=== PATIENT | female | born 1955 | race Two or more races ===

== ENCOUNTER 2017-10-19 20:55 | Emergency (ER) | payer MEDICAID ==
[~2017-10-19] VITALS: Ht 165.1 cm; Wt 68.0 kg
[2017-10-19 23:31] LABS: APPEARANCE,URINE CLEAR (CLEAR); BILIRUBIN,URINE NEGATIVE (NEGATIVE); BLOOD, URINE TRACE-INTA Ery/uL (NEGATIVE); COLOR,URINE YELLOW (YELLOW); KETONES,URINE NEGATIVE (NEGATIVE); LEUKOCYTE ESTERASE ,URINE NEGATIVE (NEGATIVE); NITRITE, URINE NEGATIVE (NEGATIVE); PH,URINE 6.5 (5.0-8.0); PROTEIN,URINE NEGATIVE (NEGATIVE); UGLUCOSE NEGATIVE (NEGATIVE); UROBILINOGEN,URINE 0.2 EU/dL (0.2)
[2017-10-19 23:33] LABS: BACTERIA,URINE None seen /HPF (None Seen); WBC,URINE 0-2 /HPF (0-3)
[2017-10-19 23:34] LABS: SQUAMOUS EPITHELIAL CELL,UR Few /HPF (None Seen)
[2017-10-20] MEDS ORDERED: MAG HYDROX/AL HYDROX/SIMETH 30 ML UDC PO ONE
[2017-10-20] MEDS ORDERED: BENA40TA2 PO (00:04)
[2017-10-20] MEDS ORDERED: OMEP40CA37 PO (00:04)
[2017-10-20] MEDS ORDERED: MAG HYDROX/AL HYDROX/SIMETH 30 ML UDC ONE (00:45)
[2017-10-20 00:47] VITALS: BP 151/97
[2017-10-20 01:12] LABS: BASOPHILS % (AUTO) 0.5 % (0.0-2.0); EOSINOPHILS # (AUTO) 0.2 /CMM (0.0-0.7); HEMATOCRIT 35 % (33-45); HEMOGLOBIN 11.9 g/dL (11.5-14.8); LYMPHOCYTES # (AUTO) 2.5 /CMM (0.8-4.8); LYMPHOCYTES % (AUTO) 38.9 % (20.0-44.0); MEAN CORPUSCULAR HEMOGLOBIN 32 PG (26.0-33.0); MEAN CORPUSCULAR HGB CONC 34 g/dl (31.0-36.0); MEAN CORPUSCULAR VOLUME 93 fL (82-100); MONOCYTES # (AUTO) 0.5 /CMM (0.1-1.30); MONOCYTES % (AUTO) 7.3 % (2.0-12.0); NEUTROPHILS # (AUTO) 3.2 /CMM (1.8-8.9); NEUTROPHILS % (AUTO) 50.3 % (43.0-81.0); PLATELET COUNT (AUTO) 226 /CMM (150-450); RDW COEFFICIENT OF VARIATION 13.2 (11.5-15.0); WHITE BLOOD COUNT (AUTO) 6.4 K/uL (4.3-11.0)
[2017-10-20 01:23] LABS: CALCIUM, SERUM 8.4 mg/dL (8.5-10.1); CARBON DIOXIDE 26 mmol/L (21-32); CHLORIDE 105 mmol/L (98-107); CREATININE 0.5 mg/dL (0.6-1.3); GLUCOSE 94 mg/dL (74-106); POTASSIUM 3.7 mmol/L (3.5-5.1); SODIUM SERUM 140 mmol/L (136-145); UREA NITROGEN, BLOOD 20 mg/dL (7-18)
[2017-10-20 01:32] LABS: TROPONIN I < 0.017 ng/mL (0.00-0.056)
== END 2017-10-20 01:45 | disposition home or self-care (01) ==
LOC: ER 20:55
DX: R07.9 Chest pain, unspecified (principal); K21.9 Gastro-esophageal reflux disease without esophagitis; I10 Essential (primary) hypertension; G89.29 Other chronic pain
CPT/HCPCS: 36415; 71045; 80048; 81001; 84484; 85025; 93005; 99285; A4606; Z7610; 81000-TC

== ENCOUNTER 2025-02-24 08:07 | Inpatient (IN) | payer MEDICARE, OTHER ==
[~2025-02-24] VITALS: Ht 144.8 cm; Wt 72.6 kg
[~2025-02-24 08:07] MED LIST: BENA40TA8 PO; OMEP40CA21 PO
[2025-02-24] MEDS ORDERED: LIDOCAINE 2%-EPI 1:100,000 30 ML VIAL ONE (09:39)
[2025-02-24] MEDS ORDERED: dexaMETHasone SOD PHOSPHATE 2 ML ONE (09:39)
[2025-02-24] MEDS ORDERED: VANCOMYCIN 1 GM VIAL ONE (09:39)
[2025-02-24] MEDS ORDERED: FENTANYL PF 100MCG/2ML AMPUL ONE (10:05)
[2025-02-24] MEDS ORDERED: ROCURONIUM BROMIDE 50 MG/5 ML ONE (10:05)
[2025-02-24] MEDS ORDERED: MIDAZOLAM HCL 2 MG/2ML VIAL ONE (10:05)
[2025-02-24] MEDS ORDERED: SUGAMMADEX SODIUM 200 MG/2 ML VIAL IV ONE (10:05)
[2025-02-24] MEDS ORDERED: OXYMETAZOLINE HCL NASAL SPRAY 30 ML BOTTLE NS ONE (10:05)
[2025-02-24] MEDS ORDERED: FAMOTIDINE/PF INJ 20 MG/2 ML VIAL IV ONE (10:05)
[2025-02-24] MEDS ORDERED: LIDOCAINE 2% JEL UROJET 10 ML MM ONE (10:05)
[2025-02-24] MEDS ORDERED: SEVOFLURANE 250 ML BOTTLE IH ONE (10:53)
[2025-02-24] MEDS ORDERED: HYDROMORPHONE 1 MG/1 ML DISP.SYRIN IV PRN (11:30)
[2025-02-24] MEDS ORDERED: LABETALOL HCL IV 100MG VIAL IV PRN (11:30)
[2025-02-24] MEDS: IV NS 0.9% 1,000 ML IV PRN (13:56)
[2025-02-24] MEDS ORDERED: ACETAMINOPHEN 325 MG TABLET PO PRN ×2 (14:00→18:00)
[2025-02-24] MEDS ORDERED: ONDANSETRON HCL/PF 4 MG/2 ML VIAL IV PRN (14:00)
[2025-02-24] MEDS ORDERED: DONE10TA44 PO (14:40)
[2025-02-24] MEDS ORDERED: ATOR40TA PO (14:40)
[2025-02-24] MEDS ORDERED: HYDR-4076 PO (14:40)
[2025-02-24] MEDS ORDERED: AMLO-212 PO (14:40)
[2025-02-24] MEDS ORDERED: CLON0.1T PO (14:40)
[2025-02-24] MEDS ORDERED: MECL-68 PO (14:40)
[2025-02-24 20:00] VITALS: BP 157/87; TEMP 99.3
[2025-02-24] MEDS: VANCOMYCIN 1 GM in IV D5W 250ml IV SCH (22:13)
[2025-02-24] MEDS: HYDROMORPHONE 1 MG/1 ML DISP.SYRIN IV PRN (22:37)
[2025-02-25 06:57] LABS: PLATELET COUNT (AUTO) 194 K/uL (150-450); RED BLOOD CELL COUNT(AUTO) 3.62 MIL/uL (4.0-5.2); RED CELL DISTRIBUTION WIDTH 13.7 % (11.5-15.0); WHITE BLOOD COUNT (AUTO) 8.3 K/uL (4.3-11.0)
[2025-02-25 07:05] LABS: ASPARTATE AMINOTRANSFERASE 23.0 U/L (15-37); CALCIUM, SERUM 8.5 mg/dL (8.5-10.1); CREATININE 0.4 mg/dL (0.6-1.3); PHOSPHORUS 3.5 mg/dL (2.5-4.9); SODIUM SERUM 138.0 mmol/L (136-145); TOTAL PROTEIN, SERUM 6.8 g/dL (6.4-8.2); UREA NITROGEN, BLOOD 8.0 mg/dL (7-18)
[2025-02-25 08:00] VITALS: BP 132/74; TEMP 98.6; O2SAT 97
[2025-02-25 08:41] VITALS: BP 132/74
[2025-02-25] MEDS: AMLODIPINE BESYLATE 5 MG TABLET PO SCH (08:41)
[2025-02-25] MEDS: ATORVASTATIN 40 MG TABLET PO SCH (08:41)
[2025-02-25] MEDS: PANTOPRAZOLE 40 MG TABLET.DR PO SCH (08:41)
[2025-02-25] MEDS: MECLIZINE HCL 25 MG TABLET PO SCH (08:41)
[2025-02-25] MEDS: DONEPEZIL 5 MG TABLET PO SCH (08:42)
[2025-02-25] MEDS ORDERED: LANOLIN/MIN OIL/PETROLAT,WHT 3.5 GM TUBE OP ONE (11:54)
== END 2025-02-25 12:00 | disposition home or self-care (01) | DRG 142 ==
LOC: DS 08:07 → MED 11:02
PROVIDERS: ADMIT Internal Medicine; ATTEND Internal Medicine
PROC: 0NUT07Z Supplement Right Mandible with Autologous Tissue Substitute, Open Approach (ICD-10-PCS; principal; 2025-02-24 10:10)
PROC: 0N5T0ZZ Destruction of Right Mandible, Open Approach (ICD-10-PCS; principal; 2025-02-24 10:10)
PROC: 0NST04Z Reposition Right Mandible with Internal Fixation Device, Open Approach (ICD-10-PCS; principal; 2025-02-24 10:10)
PROC: 09BR0ZZ Excision of Left Maxillary Sinus, Open Approach (ICD-10-PCS; principal; 2025-02-24 10:10)
PROC: 0NSR04Z Reposition Maxilla with Internal Fixation Device, Open Approach (ICD-10-PCS; principal; 2025-02-24 10:10)
PROC: 0NUR07Z Supplement Maxilla with Autologous Tissue Substitute, Open Approach (ICD-10-PCS; principal; 2025-02-24 10:10)
PROC: 0N5R0ZZ Destruction of Maxilla, Open Approach (ICD-10-PCS; principal; 2025-02-24 10:10)
DX: S02.609B Fracture of mandible, unspecified, initial encounter for open fracture (principal); S02.40DA Maxillary fracture, left side, initial encounter for closed fracture; X58.XXXA Exposure to other specified factors, initial encounter; Y92.9 Unspecified place or not applicable; M27.2 Inflammatory conditions of jaws; D16.4 Benign neoplasm of bones of skull and face; D16.5 Benign neoplasm of lower jaw bone; J32.0 Chronic maxillary sinusitis; I10 Essential (primary) hypertension; E78.5 Hyperlipidemia, unspecified
CPT/HCPCS: 36415; 80053-TC; 83735-TC; 84100-TC; 85025-TC; A4223; A4338; C1713; G0378; J1100; J1171; J1308; J2250; J2405; J2704; J3010; J3373; J3490; J7030; J7040; J7060; J8597